=== PATIENT | female | born 1985 | race Caucasian/White ===

== ENCOUNTER 2019-05-10 14:57 | Emergency (ER) | payer OTHER ==
[~2019-05-10] VITALS: Ht 160 cm; Wt 71.7 kg
[2019-05-10 15:04] VITALS: Ht 160 cm; Wt 71.7 kg
[2019-05-10] MEDS ORDERED: LIDOCAINE 2%/EPI MPF (SDV) 20 ML VIAL INJ STA (15:08)
[2019-05-10] MEDS ORDERED: DIPHTH/TET/ACEL PERTUSS (ADULT) 0.5 ML VIAL IM* ONE (15:30)
[2019-05-10 16:38] VITALS: BP 110/66; PULSE 67; RESP 20
== END 2019-05-10 16:41 ==
LOC: E/R 14:57
DX: S81.811A Laceration without foreign body, right lower leg, initial encounter (principal); F15.10 Other stimulant abuse, uncomplicated; W25.XXXA Contact with sharp glass, initial encounter; Y92.89 Other specified places as the place of occurrence of the external cause; Z23 Encounter for immunization
CPT/HCPCS: 73590; 90471; 90715